=== PATIENT | male | born 1940 | race Caucasian/White ===

== ENCOUNTER 2016-09-11 18:21 | Inpatient (IN) | payer MEDICARE, BC ==
--- NOTE | ~2016-09-11 | PRECARD ---
H&P [place] [id number] [place]. [address] NAME: SHANDA LOONEY : 42 STATUS : ADM IN [facility]#: [id number] AGE: 76 ADM/REG DATE : 09/11/16 MR#: [id number] REPORT SERV DATE: 09/12/16 DICTATED BY: CATY CALERO DATE: 09/12/16 REPORT STATUS : Draft TRANSCRIBED BY: MARTY DATE: 09/12/16 DATE OF ADMISSION: 09/11/2016 HISTORY OF PRESENT ILLNESS: Mr. Shanda Looney is a 76-year-old gentleman, admitted for osteomyelitis, Cardiology is consulted for preop evaluation prior to removal of a portion of his second toe on his left foot. Mr. Looney has ischemic cardiomyopathy, coronary artery disease, multiple stents placed. He has not had bypass surgery. He has a biventricular AICD. He has a history of atrial flutter ablation, he is unable to take oral anticoagulation per Dr. Espinoza because of hemoptysis. He has severe COPD, hypertension, diabetes, and esophageal reflux. He has morbid obesity. He was admitted to [facility] on 08/31/2016 for heart failure exacerbation with 35-pound weight gain. He had aggressive diuresis and was discharged. He is now admitted with known, chronic infection of a second toe on the left foot. At this time, he denies any chest pain. He has had no presyncope or syncope. He stated his defibrillator has not discharged. He feels much better from a heart failure perspective. There is no recent orthopnea or PND. He does describe persistent dyspnea on exertion. PAST MEDICAL HISTORY: 1. Diabetes. 2. COPD. 3. Esophageal reflux. MEDICATIONS: 1. Albuterol. 2. Aspirin. 3. Symbicort. 4. Calmoseptine ointment. 5. Carvedilol. 6. Clopidogrel. 7. Lasix. 8. Insulin. 9. BiDil. 10.Lisinopril. 11.Metformin. 12.Omeprazole. 13.Potassium. 14.Pravachol. 15.Requip. 16.Spironolactone. 17.Spiriva. FAMILY HISTORY: Positive for coronary artery disease. REVIEW OF SYSTEMS: H&P [facility] [address] [place]. [address] NAME: SHANDA LOONEY : 44 STATUS : ADM IN PAT#: [id number] AGE: 76 ADM/REG DATE : 09/11/16 MR#: [id number] REPORT SERV DATE: 09/12/16 DICTATED BY: CATY CALERO DATE: 09/12/16 REPORT STATUS : Draft TRANSCRIBED BY: MARTY DATE: 09/12/16 A complete review of systems obtained, pertinent negative and remarkable, except as noted above and below. All systems addressed. PHYSICAL EXAMINATION: Bp: 100/60. Heart Rate: 70. GENERAL: The patient is morbidly obese, comfortable flat, in very good spirits, in no distress at all. HEENT: No xanthelasma; lips without cyanosis LUNGS: Clear to auscultation, no wheezes, rales or rhonchi; good breath sounds. COR: No JVD or hepatojugular reflux, no murmurs, rubs or gallops, impulse mid clavicular line without carotid or abdominal bruits; normal S1 and S2. ABDOMEN: Bowel sounds positive, normal activity, without tenderness, masses or hepatosplenomegaly. EXTREMITIES: Bilateral severe leg edema. SKIN: Normal turgor. Ms: Normal muscle strength, without kyphosis/scoliosis. NEURO/PSYCH: Alert and oriented times 4, no apparent anxiety or depression. LABORATORY DATA: BUN is 30, creatinine 1.2. Troponin 0.09. Hematocrit 35.9. BNP is 1003. EKG: Ventricular paced. ASSESSMENT: Mr. Looney is a very nice 76-year-old gentleman with ischemic cardiomyopathy, ejection fraction 35% by echocardiogram earlier this month, scheduled for being considered for removal of a portion of his left second toe. There is no absolute cardiac indication to that procedure. I presume the risk would be greater than benefit. I will advance his diuretics given his severe leg edema, recent admission with 35-pound weight gain, elevated BNP of 1000. KRISS/MARTY Caty Calero M.D. / [id number] CC: Oumou Humphries M.D.
--- NOTE | ~2016-09-11 | OP ---
Record Of Operation [facility] [address] [place]. [address] NAME: SHANDA LOONEY : 44 STATUS : ADM IN [facility]#: [id number] AGE: 76 ADM/REG DATE : 09/11/16 MR#: [id number] REPORT SERV DATE: 09/14/16 DICTATED BY: BETHANY KENNEDY DATE: 09/14/16 REPORT STATUS : Draft TRANSCRIBED BY: MODL DATE: 09/14/16 DATE OF PROCEDURE: 09/14/2016 SURGEON: Bethany Kennedy D.P.M. PREOPERATIVE DIAGNOSIS: Osteomyelitis, left second digit. POSTOPERATIVE DIAGNOSIS: Osteomyelitis, left second digit. PROCEDURE: Disarticulation of the digit at the proximal interphalangeal joint level with a portion of the phalangeal shaft to aid in closure. ANESTHESIA: Local MAC consisting with 10 mL of 0.5% Marcaine plain administered to the fifth metatarsal area in a Ko block fashion. HEMOSTASIS: No pneumatic ankle tourniquet was used. ESTIMATED BLOOD LOSS: 10 mL. MATERIALS: 4-0 nylon, 2-0 nylon. PATHOLOGICAL SPECIMENS: 1. Deep wound culture at the level of amputation. 2. Head of proximal phalanx and portions of bone for both pathologic evaluation as well as microbiology. Proximal portion of phalangeal shaft with an inked edge to rule out osteomyelitis at the most proximal margin. DESCRIPTION OF PROCEDURE: The patient was visually and verbally identified in the holding as 76-year-old white male, Shanda Looney. The patient was medically cleared for this procedure, had no questions. Left foot was identified for surgical intervention. The patient was then taken to the operating room, placed on the operating room table in the supine position. After adequate IV sedation was achieved a local block consisting of 10 mL of 0.5% Marcaine plain was administered to the left second metatarsophalangeal joint area in a Ko block fashion. He was then prepped and draped in the usual sterile fashion. Pneumatic ankle tourniquet was placed about the patient's left ankle, but was not utilized. Attention was then directed to the distal aspect of the digit whereby observation to the level of bone was noted. Abscessed dorsally under the skin was noted as well. Plantarly, the skin had significant damage. The digit was then disarticulated at the proximal interphalangeal joint level, significant plantar flap to allow for closure. Adequate bleeding at this level had not proceeded. Dissection proximally was then accomplished. The head of the proximal phalanx was then removed due to the previous skin avascularity. A portion of the proximal phalangeal shaft was then removed. The bone was found to be very hard at this level. There was then proximal extension of abscess throughout the tendon sheath. No abnormal findings at the most proximal portion. The wound was then flushed with saline. The wound was then closed utilizing 2-0 nylon and 4-0 nylon in simple interrupted fashion. Betadine solution, dry sterile compressive dressing was applied. The patient tolerated the procedure and Record Of Operation [address] [place]. [address] NAME: SHANDA LOONEY : 44 STATUS : ADM IN [facility]#: [id number] AGE: 76 ADM/REG DATE : 09/11/16 MR#: [id number] REPORT SERV DATE: 09/14/16 DICTATED BY: BETHANY KENNEDY DATE: 09/14/16 REPORT STATUS : Draft TRANSCRIBED BY: MARTY DATE: 09/14/16 anesthesia well, left the operating room with vital signs stable and vascular status at preoperative levels and was returned to the general medical floor for further care. TALISHA/MARTY Lisa RamosPDb / [id number] CC: MD John Deleon M.D.
--- NOTE | ~2016-09-11 | HP ---
History And Physical [place] [address] [facility] [place]. [address] NAME: SHANDA LOONEY : 42 STATUS : ADM IN [facility]#: [id number] AGE: 76 ADM/REG DATE : 09/11/16 MR#: [id number] REPORT SERV DATE: 09/11/16 DICTATED BY: CADE GUERRERO DATE: 09/11/16 REPORT STATUS : Draft TRANSCRIBED BY: MODL DATE: 09/11/16 DATE OF ADMISSION: 09/11/2016 HISTORY OF PRESENT ILLNESS: The patient is a 76-year-old male who was sent from Dr. Gagnon's office to [facility] Emergency Room because of right second toe infection and osteomyelitis, and Dr. Gagnon also sent with the patient orders for his foot x-rays, for his foot cultures and dressing, as well as instructions as several physicians needs to be consulted including Dr. Nielson for evaluation of the patient's vascular status in his lower extremity as well as Dr. Espinoza for cardiac clearance and Dr. William from Infectious Disease. The patient and his reported that the patient was recently hospitalized at [facility] where he was admitted on 08/31/2016 with symptoms of congestive heart failure and 35-pound weight gain, shortness of breath and swelling and we have history of present illness in the computer dictated by Dr. Espinoza, and the patient and reported that the patient was given diuretics, but because of the risk of worsening kidney function, he was not given enough diuresis and he is still swollen as well as the patient is complaining of cough with some sputum production, which is having color like klein, but no blood in the sputum. He denies any fever. No chest pain. He has shortness of breath on minimal physical exertion. No abdominal pain. PAST MEDICAL HISTORY: Very extensive. 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 According to the patient, he had a stent placement in the past, morbid obesity, history of airway telangiectasias diagnosed via bronchoscopy, history of recent hypoglycemia when the patient was at Dr. Nielson's office, history of recent surgery on the right big toe and history of vascular procedure done by Dr. Nielson on the right leg. According to the patient's , she said that he opened up two arteries in his legs, but he could not open up the third one, and reporting that Dr. Nielson needs to see the patient before any surgical intervention to be done as well as Dr. Espinoza needs to see the patient before any surgical intervention to be done. The patient also has COPD. He is a long-term smoker, history of defibrillator pacemaker. SURGICAL HISTORY: Includes stripped veins, cholecystectomy, surgery on the right big toe, shoulder repair, knee surgery, and some kind of revascularization procedure on the right lower extremity. History of hiatal hernia repair. SOCIAL HISTORY: He is a long-term smoker. He used to smoke 5 packs per day. He recently quit like 10 years ago. No alcohol. No recreational drug use. ALLERGIES: THERE IS AMLODIPINE LISTED ALLERGY, BUT THE PATIENT IS UNSURE IF HE REALLY HAS ALLERGY TO AMLODIPINE. FAMILY HISTORY: Positive for coronary artery disease, hypertension, and diabetes. History And Physical [address] [address] NAME: SHANDA LOONEY : 42 STATUS : ADM IN [facility]#: [id number] AGE: 76 ADM/REG DATE : 09/11/16 MR#: [id number] REPORT SERV DATE: 09/11/16 DICTATED BY: CADE GUERRERO DATE: 09/11/16 REPORT STATUS : Draft TRANSCRIBED BY: MARTY DATE: 09/11/16 HOME MEDICATIONS: Include NovoLog before meals, Lantus 50 units at bedtime, furosemide 40 daily, albuterol nebulized 4 times daily p.r.n., aspirin 81 mg daily, Symbicort two puffs inhaled twice a day, Calmoseptine ointment as needed, carvedilol 25 p.o. b.i.d., Plavix 75 mg a day, Lasix 40 mg a day, insulin Humalog 15 units before meals and 20 before lunch and supper, BiDil 20/37.5 three times daily, lisinopril 5 mg a day, metformin 500 p.o. b.i.d., nitroglycerin 0.4 mg p.r.n. for chest pain, Prilosec 20 mg a day, potassium chloride 20 mEq a day, pravastatin 20 mg a day, Requip 1 mg p.o. three times daily for restless legs syndrome, spironolactone 25 mg a day, Spiriva one capsule by inhalation q.24 hours. Cough drops as needed for cough. REVIEW OF SYSTEMS: 14-point review of system done and negative except what is stated in the history of present illness. PHYSICAL EXAMINATION: GENERAL: Obese male, not in acute distress. Resting quietly. VITAL SIGNS: Blood pressure 101/64, temperature 98.3, heart rate 71, respiratory rate 20, oxygen saturation 94 on room air. HEENT: Head atraumatic, normocephalic. Conjunctivae clear. Pupils are equal and reactive to light and accommodation. Extraocular muscles are intact. NECK: Supple. Trachea is midline. No supraclavicular or cervical lymphadenopathy. LUNGS: Diminished breath sounds bilaterally. Decreased respiratory effort. CARDIOVASCULAR SYSTEM: Regular rate and rhythm. Point of maximal impulse not displaced. ABDOMEN: Obese, soft, nontender, nondistended with positive normoactive bowel sounds. No organomegaly. EXTREMITIES: No clubbing, cyanosis. 1+ edema on the feet. There is a right second toe erythema as well as there is a pus on upper part of the right second toe and it is warm to touch. Diminished pedal pulse bilaterally. PSYCHIATRIC: Normal mood and affect. NEUROLOGICAL: Awake, alert, oriented to time, place, and person. Muscle strength is 5/5 bilaterally on upper and lower extremities. SKIN: Normal color and turgor. LABORATORY RESULTS: Sodium 135, potassium 5.1, chloride 103, carbon dioxide 26, BUN 29, creatinine 1.24, blood sugar is 95, troponin 0.08. White count 6.6, hemoglobin 11.7, hematocrit 36.5, platelet count 124. PT 18.1. INR 1.5. Chest x-ray currently ordered, but still pending. X-ray of the left foot, no fracture or dislocation. EKG needs to be ordered as well. ASSESSMENT AND PLAN: 1. This is a 76-year-old male with a past medical history of coronary artery disease, history of congestive heart failure, chronic systolic dysfunction, history of peripheral arterial disease, history of hemoptysis and COPD as well as diabetes type 2, presented with right second toe osteomyelitis from Dr. Gagnon's office with Dr. Gagnon's orders already written on the separate sheet regarding his osteomyelitis. 2. Cough. History And Physical [address] [address] NAME: SHANDA LOONEY : 42 STATUS : ADM IN [facility]#: [id number] AGE: 76 ADM/REG DATE : 09/11/16 MR#: [id number] REPORT SERV DATE: 09/11/16 DICTATED BY: CADE GUERRERO DATE: 09/11/16 REPORT STATUS : Draft TRANSCRIBED BY: MODSudha DATE: 09/11/16 3. Minimally elevated troponin. 4. History of coronary artery disease. 5. Congestive heart failure recent exacerbation, still having some residual edema. 6. Chronic kidney disease stage III. 7. Diabetes mellitus. We will admit the patient to cardiac telemetry bed. Regarding his osteomyelitis, we will obtain blood cultures and wound cultures. We will cover the patient with antibiotics; vancomycin and cefepime. We will do sedimentation rate and CRP. Regarding the patient's cough he still may have CHF exacerbation. We will order chest x-ray, as well as we will order echocardiogram and we will check serial troponins. We will order BNP and we will consult Dr. Espinoza for further evaluation of his cardiac status as well as for preoperative clearance as it was requested by his outbound sales executive, Dr. Gagnon. 8. Minimally elevated troponin. We will do serial troponins and EKG was also ordered. 9. Diabetes mellitus. We will put him on insulin sliding scale as well as continue Levemir instead of his home Lantus. 10.Regarding his chronic obstructive pulmonary disease, we will give him breathing treatments per protocol. We will order bilateral arterial duplex ultrasound. Once again, it is also very necessary to pay attention at separate orders written by Dr. Gagnon regarding wound care, and regarding further plan of treatment per request of Dr. Gagnon, I will consult Dr. Nielson for further evaluation of patient's vascular status as well as Dr. Espinoza for further evaluation of the patient's cardiac status if he can have any surgical interventions as well as we will consult Infectious Disease. Everything was discussed with the patient and his and my partner will see this patient starting tomorrow morning. MG/MODL Cade Guerrero M.D. / [id number] CC: Oumou Humphries M.D. Christopher Lesar, M.D. Dennis Bizzoco, D.P.M. Andrew H Fowler, M.D.
--- NOTE | ~2016-09-11 | CN ---
Consultation Report [facility] [address] [place]. [address] NAME: SHANDA LOONEY : 44 STATUS : ADM IN [facility]#: [id number] AGE: 76 ADM/REG DATE : 09/11/16 MR#: [id number] REPORT SERV DATE: 09/14/16 DICTATED BY: SUDHAKAR HENRIQUEZ DATE: 09/13/16 REPORT STATUS : Draft TRANSCRIBED BY: MODSudha DATE: 09/13/16 DATE OF CONSULTATION: 09/13/2016 REFERRING PHYSICIAN: Dr. Gagnon. REASON FOR CONSULTATION: Osteomyelitis and cellulitis. HISTORY OF PRESENT ILLNESS: This is a 76-year-old man with a past medical history notable for obesity, congestive heart failure, diabetes, cardiomyopathy with AICD, COPD. He was admitted to the hospital on 09/11/[address] Gagnon's office with infection of his left second toe. This had developed over the past week and a half or so with increasing pain, swelling, and some drainage, but no associated fevers, chills, or sweats. X-ray on admission was interpreted as not showing any bony abnormalities, but on my review, I think the very distal tip of the left second toe distal phalanx has some bony changes suggestive of osteomyelitis. The patient had a wound culture done along with blood cultures and was started on empiric antibiotics with vancomycin and cefepime. A bone scan has been done, but it is not yet complete. There are tentative plans for surgical therapy in the next day or two. The patient denies any significant pain at present. PAST MEDICAL HISTORY: In addition to the above is notable for atrial flutter with a history of ablation. He also had treatment in April apparently by Dr. Gagnon for some problems in the left big toe which included infection, but I do not have those details. He has had a cholecystectomy and hiatal hernia repair, and AICD as mentioned. He has also had some vascular procedure on his right lower extremity. ALLERGIES: NO KNOWN ANTIBIOTIC ALLERGIES. PRESENT MEDICATIONS: Include aspirin, Coreg, Plavix, insulin, BiDil, Protonix, Pravachol, Requip, Aldactone, Spiriva, Levemir, and the antibiotics. SOCIAL HISTORY: He was a heavy smoker in the past, but quit some years ago. Nondrinker, lives with his who is here in the room with him. FAMILY HISTORY: Noncontributory to the present acute problem. REVIEW OF SYSTEMS: No nausea, vomiting, diarrhea, chest pain, shortness of breath. PHYSICAL EXAMINATION: VITAL SIGNS: The patient weighs 139 kg. He is afebrile. Blood pressure 121/77, pulse 59, respiratory rate 14. GENERAL: He is alert, in no acute distress. HEAD AND NECK: Shows a clear oral cavity without thrush. LUNGS: Clear to auscultation anteriorly. CARDIAC: Regular rate and rhythm. Normal S1, S2 without murmur, gallop, or rub. Consultation Report [place] [address] [place]. [address] NAME: SHANDA LOONEY : 44 STATUS : ADM IN [facility]#: [id number] AGE: 76 ADM/REG DATE : 09/11/16 MR#: [id number] REPORT SERV DATE: 09/14/16 DICTATED BY: SUDHAKAR HENRIQUEZ DATE: 09/13/16 REPORT STATUS : Draft TRANSCRIBED BY: MARTY DATE: 09/13/16 ABDOMEN: Obese, soft, nontender. There is mild erythema of his abdominal pannus. EXTREMITIES: The left second toe has obvious gross infection with loss of some of the epidermis and some purulent drainage and wound which is not probed, but goes into at least the subcutaneous tissue on the tip of the toe. There is some swelling of the entire second toe and very minimal erythema of the toe and the dorsum of the foot, mild associated warmth. The patient has a peripheral IV without phlebitis. LABORATORY STUDIES: White blood cell count on admission was 6.6, hemoglobin is 11.5, platelets 123. Creatinine 1.24. Hemoglobin A1c 7.3. C-reactive protein 10.7, sedimentation rate 5. BNP on admission 1003. Liver function tests normal. Wound culture is growing abundant gram-negative bk. Gram stain showed gram-positive cocci. Blood cultures negative to date. Chest x-ray negative. Left foot x-ray as mentioned. Lower extremity arterial duplex studies show no evidence of major vascular obstruction. Bone scan is pending. IMPRESSION: Osteomyelitis of the left second toe distal phalanx with associated cellulitis. The wound culture is growing a gram-negative bk, but the Gram stain shows gram-positive cocci and I think with the associated cellulitis, we need to continue coverage for both. PLAN: Pending final culture results and surgical treatment. We will continue vancomycin and Zosyn. Anticipate changing to oral antibiotics though shortly after surgery. HH/MODL Sudhakar Henriquez M.D. / [id number] CC: MD John Mendenhall M.D. Dennis Bizzoco, D.PDb
--- NOTE | ~2016-09-11 | DS ---
Discharge Summary [place] [address] [place]. [address] NAME: SHANDA LOONEY : 44 STATUS : DIS IN PAT#: [id number] AGE: 76 ADM/REG DATE : 09/11/16 MR#: [id number] REPORT SERV DATE: 09/16/16 DICTATED BY: LC THAKKAR DATE: 09/16/16 REPORT STATUS : Draft TRANSCRIBED BY: MODL DATE: 09/16/16 ADMISSION DATE: 09/11/2016 DISCHARGE DATE: 09/16/2016 DISCHARGE DIAGNOSES: 1. Osteomyelitis of second toe, status post amputation. 2. Wound cultures growing Pseudomonas and Proteus, both of which are sensitive to fluoroquinolones. 3. Acute on chronic systolic congestive heart failure, baseline ischemic cardiomyopathy with ejection fraction of 35%. 4. Diabetes type 2. 5. Morbid obesity. 6. Hypertension. 7. Chronic obstructive pulmonary disease. 8. Gastroesophageal reflux disease. CONSULTS: 1. Cardiology. 2. Infectious Disease. 3. Podiatry. PROCEDURES AND IMAGING: Left second toe amputation on 09/14/2016. HOSPITAL COURSE: This is a 76-year-old gentleman who was admitted to the hospital with a left second toe infection with underlying osteomyelitis. For details, please refer to excellent H and P dictated by Dr. Barbara Ornelas. In summary, the patient was admitted and was started on broad-spectrum antibiotics. The patient was seen by Cardiology for the systolic congestive heart failure exacerbation as well as cardiac clearance for pending surgery. The patient was also seen by Infectious Disease and Podiatry. The patient was cleared for surgery from cardiac standpoint and the patient underwent amputation of left second toe on 09/14/2016. The surgery itself was uncomplicated. Throughout the hospital stay, the patient tolerated IV Bumex diuresis well, and the patient remained afebrile and hemodynamically stable with normal white blood cell count. A lot of the infected tissue was cleanly removed with the second toe amputation and thus the patient was cleared for discharge from Infectious Disease and Podiatry standpoint on the day after surgery. As the patient was diuresing really well, the patient was monitored another day for more IV Bumex diuresis prior to discharge. The patient is being discharged to home with one week course of p.o. Levaquin as well as increased dose of Lasix to a 40 mg p.o. b.i.d. regimen. DISCHARGE DESTINATION: Home with home health. DISCHARGE MEDICATIONS: 1. Levaquin 750 mg p.o. daily x6 additional days. 2. Lasix 40 mg p.o. b.i.d. which is increased from once daily. 3. Hydrocodone 5/325 one tab p.o. q.6 hours p.r.n., 15 tablets. Otherwise, no medication changes. Discharge Summary [address] [address] NAME: SHANDA LOONEY : 44 STATUS : DIS IN PAT#: [id number] AGE: 76 ADM/REG DATE : 09/11/16 MR#: [id number] REPORT SERV DATE: 09/16/16 DICTATED BY: LC THAKKAR DATE: 09/16/16 REPORT STATUS : Draft TRANSCRIBED BY: MARTY DATE: 09/16/16 FOLLOWUP: 1. Please follow up with PCP in the next one to two weeks. 2. Please follow up with Cardiology in the next two to four weeks. 3. Please follow up with Podiatry in the next two to four weeks. A total of 40 minutes spent in coordinating this patient's discharge today. DICTATED BY: MD PIERCE Deleon/MARTY Lc Thakkar MD / [id number] CC: MD John Deleon M.D.
[2016-09-11 15:27] LABS: BASOPHILS 0.2 %; BASOPHILS ABSOLUTE 0.01 10/3/uL (0.0-0.16); EOSINOPHILS 2.1 %; EOSINOPHILS ABSOLUTE 0.13 10/3/uL (0.0-0.53); ER CBC TAT 0 Hrs 07 Mins; HEMATOCRIT 39.2 % (40.0-51.0); HEMOGLOBIN 12.3 g/dL (13.6-17.8); IMMATURE GRANULOCYTES 0.3 %; IMMATURE GRANULOCYTES ABSOLUTE 0.02 10/3/uL (0.0-0.11); LYMPHOCYTES 12.2 %; LYMPHOCYTES ABSOLUTE 0.75 10/3/uL (0.67-4.30); MEAN CORPUS HGB CONC 31.4 g/dL (32.0-36.0); MEAN CORPUSCULAR HEMOGLOB 26.9 pg (26.0-34.0); MEAN CORPUSCULAR VOLUME 85.8 fL (80-100); MEAN PLATELET VOLUME 9.3 fL (9.2-13.0); MONOCYTES 17.6 %; MONOCYTES ABSOLUTE 1.08 10/3/uL (0.21-1.20); NEUTROPHILS 67.6 %; NEUTROPHILS ABSOLUTE 4.16 10/3/uL (2.02-8.40); PLATELET COUNT 127 10/3/uL (150-400); RBC DISTRIBUTION WIDTH 15.7 % (12.0-16.0); RED CELL COUNT 4.57 10/6/uL (4.7-6.1); WHITE BLOOD CELLS 6.2 10/3/uL (4.5-10.5)
[2016-09-11 15:28] LABS: MANUAL DIFF NO %
[2016-09-11 15:39] LABS: ALBUMIN 3.4 G/DL (3.5-5.0); CALCIUM, SERUM 8.4 MG/DL (8.5-10.4); CHLORIDE, SERUM 104 MMOL/L (96-112); CO2 (CARBON DIOXIDE) 29 MMOL/L (24-34); CREATININE 1.27 MG/DL (0.70-1.30); GFR AFRICAN AMERICAN 64 ML/MIN (>=60); GFR NON AFRICAN AMERICAN 55 ML/MIN (>=60); GLOBULIN 3.4 G/DL (2.5-4.1); SGOT(AST) 26 U/L (5-40); SGPT(ALT) 50 U/L (5-65); SODIUM, SERUM 136 MMOL/L (135-148); TOTAL BILIRUBIN 1.2 MG/DL (0-1.2); TOTAL PROTEIN 6.8 G/DL (6.0-8.5)
[2016-09-11 15:40] LABS: ALKALINE PHOSPHATASE 77 U/L (45-117); BUN (BLOOD UREA NITROGEN) 29 MG/DL (6-23); GLUCOSE, SERUM 78 MG/DL (60-99)
[2016-09-11 18:13] LABS: BASOPHILS 0.2 %; BASOPHILS ABSOLUTE 0.01 10/3/uL (0.0-0.16); EOSINOPHILS 2.3 %; EOSINOPHILS ABSOLUTE 0.15 10/3/uL (0.0-0.53); HEMATOCRIT 36.5 % (40.0-51.0); HEMOGLOBIN 11.7 g/dL (13.6-17.8); IMMATURE GRANULOCYTES 0.3 %; IMMATURE GRANULOCYTES ABSOLUTE 0.02 10/3/uL (0.0-0.11); LYMPHOCYTES 15.1 %; LYMPHOCYTES ABSOLUTE 0.99 10/3/uL (0.67-4.30); MEAN CORPUS HGB CONC 32.1 g/dL (32.0-36.0); MEAN CORPUSCULAR HEMOGLOB 27.4 pg (26.0-34.0); MEAN CORPUSCULAR VOLUME 85.5 fL (80-100); MEAN PLATELET VOLUME 9.4 fL (9.2-13.0); MONOCYTES 15.1 %; MONOCYTES ABSOLUTE 0.99 10/3/uL (0.21-1.20); NEUTROPHILS ABSOLUTE 4.39 10/3/uL (2.02-8.40); PLATELET COUNT 124 10/3/uL (150-400); RBC DISTRIBUTION WIDTH 15.9 % (12.0-16.0); RED CELL COUNT 4.27 10/6/uL (4.7-6.1); WHITE BLOOD CELLS 6.6 10/3/uL (4.5-10.5)
[2016-09-11 18:17] LABS: MANUAL DIFF NO %
[2016-09-11 18:20] LABS: INTERNATIONAL NORMAL RATI 1.5 UNITS (-); PARTIAL THROMBO TIME 30.7 SEC (22.5-37.2)
[2016-09-11 18:21] LABS: PROTIME (NOT ORD) 18.1 SEC (12.0-14.5)
[~2016-09-11 18:21] MED LIST: ASA5GR PO; ASAB PO; ATROVENTUD INH; BIDIL20/37 PO; C1 PO; C5 PO; CLARIT10 PO; CORDARONE PO; COREG12 PO; COREG25 PO; DIABETA5 PO; DIL2TAB PO; DUONEB INH; FLONASE NAS; GLUCOPHAGE1000 MG PO; GLUCPH PO; HALF81 PO; HUMALOGPEN; HUMALOGPEN SC; KDUR20 PO; KLOR-CON M2020 MEQ PO; L40 PO; LAN125 PO; LANTUS SC; LEVAQUIN750 MG PO; LOVENOX80 SC; MAGOX4 PO; MUCINEX1200 MG PO; NITROQUICK0.4 MG SL; NITROSTAT0.4 MG SL; NOVOLOG SC; OCEAN NAS; OXYGEN; P10; P10 PO; PEP20 PO; PLAVIX PO; PRAVAC PO; PRILO PO; PRILOSEC OTC20 MG PO; PRILOSEC40 MG PO; PRIN20 PO; PRIN5 PO; PROAIR HFA INH; REQUIP1 PO; SPIRIVA INH; SPIRO25 PO; SYMBICORT 160/41 INH INH; VICTOZA18 MG/3 ML SC; VIST25 PO; Z-PAK PO
[2016-09-11] MEDS ORDERED: L40 PO (18:22)
[2016-09-11] MEDS ORDERED: LANTUS SC (18:22)
[2016-09-11] MEDS ORDERED: PRAVAC PO (18:23)
[2016-09-11] MEDS ORDERED: PRIN5 PO (18:23)
[2016-09-11] MEDS ORDERED: PLAVIX PO (18:23)
[2016-09-11] MEDS ORDERED: SPIRIVA INH (18:24)
[2016-09-11] MEDS ORDERED: COREG25 PO (18:25)
[2016-09-11] MEDS ORDERED: PRILOSEC OTC20 MG PO (18:25)
[2016-09-11] MEDS ORDERED: GLUCPH PO (18:25)
[2016-09-11] MEDS ORDERED: KLOR-CON M2020 MEQ PO (18:25)
[2016-09-11] MEDS ORDERED: NITROSTAT0.4 MG SL (18:26)
[2016-09-11] MEDS ORDERED: ASAB PO (18:26)
[2016-09-11] MEDS ORDERED: SPIRO25 PO (18:27)
[2016-09-11 18:28] LABS: BUN (BLOOD UREA NITROGEN) 29 MG/DL (6-23); CALCIUM, SERUM 8.2 MG/DL (8.5-10.4); CHLORIDE, SERUM 103 MMOL/L (96-112); CO2 (CARBON DIOXIDE) 26 MMOL/L (24-34); CREATININE 1.24 MG/DL (0.70-1.30); GFR AFRICAN AMERICAN 66 ML/MIN (>=60); GFR NON AFRICAN AMERICAN 57 ML/MIN (>=60); POTASSIUM, SERUM 5.1 MMOL/L (3.5-5.3); SODIUM, SERUM 135 MMOL/L (135-148)
[2016-09-11] MEDS ORDERED: REQUIP1 PO (18:28)
[2016-09-11] MEDS ORDERED: ALBUTEROL0.63 MG/3 INH (18:28)
[2016-09-11 18:29] LABS: CHEST PAIN PROFILE TAT 0 Hrs 20 Mins; GLUCOSE, SERUM 95 MG/DL (60-99); TROPONIN I 0.08 NG/ML (<0.05)
[2016-09-11] MEDS ORDERED: BIDIL20/37 PO (18:29)
[2016-09-11] MEDS ORDERED: SYMBICORT 160/41 INH INH (18:31)
[2016-09-11] MEDS ORDERED: CALMOSEPTINE O2.5 OZ TOP (18:34)
[2016-09-11] MEDS ORDERED: [UNRECOGNIZED DRUG - OTHER] PO (18:35)
[2016-09-11 20:19] LABS: TROPONIN I 0.09 NG/ML (<0.05)
[2016-09-11 21:01] LABS: PROCALCITONIN <0.05 ng/mL (<0.5)
[2016-09-11 22:40] LABS: C-REACTIVE PROTEIN 10.7 MG/L (<8.0)
[2016-09-11 22:56] LABS: B NATRIURETIC PEPTIDE (BNP) 1002.9 PG/ML (< 100.0)
[2016-09-12 03:53] LABS: BASOPHILS 0.3 %; BASOPHILS ABSOLUTE 0.02 10/3/uL (0.0-0.16); EOSINOPHILS 2.2 %; EOSINOPHILS ABSOLUTE 0.13 10/3/uL (0.0-0.53); HEMATOCRIT 35.9 % (40.0-51.0); HEMOGLOBIN 11.5 g/dL (13.6-17.8); IMMATURE GRANULOCYTES 0.2 %; IMMATURE GRANULOCYTES ABSOLUTE 0.01 10/3/uL (0.0-0.11); LYMPHOCYTES 13.5 %; LYMPHOCYTES ABSOLUTE 0.81 10/3/uL (0.67-4.30); MEAN CORPUSCULAR HEMOGLOB 27.1 pg (26.0-34.0); MEAN CORPUSCULAR VOLUME 84.7 fL (80-100); MEAN PLATELET VOLUME 9.5 fL (9.2-13.0); MONOCYTES ABSOLUTE 0.72 10/3/uL (0.21-1.20); NEUTROPHILS 71.8 %; NEUTROPHILS ABSOLUTE 4.32 10/3/uL (2.02-8.40); PLATELET COUNT 123 10/3/uL (150-400); RED CELL COUNT 4.24 10/6/uL (4.7-6.1)
[2016-09-12 03:54] LABS: MANUAL DIFF NO %
[2016-09-12 04:14] LABS: BUN (BLOOD UREA NITROGEN) 30 MG/DL (6-23); CHLORIDE, SERUM 104 MMOL/L (96-112); CO2 (CARBON DIOXIDE) 27 MMOL/L (24-34); CREATININE 1.23 MG/DL (0.70-1.30); GFR AFRICAN AMERICAN 67 ML/MIN (>=60); GFR NON AFRICAN AMERICAN 57 ML/MIN (>=60); POTASSIUM, SERUM 4.9 MMOL/L (3.5-5.3); SODIUM, SERUM 136 MMOL/L (135-148)
[2016-09-12 04:17] LABS: GLUCOSE, SERUM 146 MG/DL (60-99); TROPONIN I 0.09 NG/ML (<0.05)
[2016-09-12 07:08] LABS: GLYCOHEMOGLOBIN (HbA1c) 7.3 % (4.7-6.1)
[2016-09-13 05:31] LABS: BUN (BLOOD UREA NITROGEN) 30 MG/DL (6-23); CALCIUM, SERUM 8.5 MG/DL (8.5-10.4); CHLORIDE, SERUM 102 MMOL/L (96-112); CO2 (CARBON DIOXIDE) 27 MMOL/L (24-34); CREATININE 1.24 MG/DL (0.70-1.30); GFR AFRICAN AMERICAN 66 ML/MIN (>=60); GFR NON AFRICAN AMERICAN 57 ML/MIN (>=60); GLUCOSE, SERUM 127 MG/DL (60-99); POTASSIUM, SERUM 4.4 MMOL/L (3.5-5.3); SODIUM, SERUM 137 MMOL/L (135-148)
[2016-09-14 03:36] LABS: CALCIUM, SERUM 8.5 MG/DL (8.5-10.4); CHLORIDE, SERUM 101 MMOL/L (96-112); CREATININE 1.38 MG/DL (0.70-1.30); GFR AFRICAN AMERICAN 58 ML/MIN (>=60); GFR NON AFRICAN AMERICAN 50 ML/MIN (>=60); POTASSIUM, SERUM 4.4 MMOL/L (3.5-5.3); SODIUM, SERUM 137 MMOL/L (135-148)
[2016-09-14 03:38] LABS: BUN (BLOOD UREA NITROGEN) 26 MG/DL (6-23); CO2 (CARBON DIOXIDE) 32 MMOL/L (24-34); GLUCOSE, SERUM 186 MG/DL (60-99)
[2016-09-15 04:29] LABS: BASOPHILS 0.4 %; BASOPHILS ABSOLUTE 0.02 10/3/uL (0.0-0.16); EOSINOPHILS 4.5 %; EOSINOPHILS ABSOLUTE 0.22 10/3/uL (0.0-0.53); HEMATOCRIT 38.1 % (40.0-51.0); HEMOGLOBIN 11.9 g/dL (13.6-17.8); IMMATURE GRANULOCYTES 0.2 %; IMMATURE GRANULOCYTES ABSOLUTE 0.01 10/3/uL (0.0-0.11); LYMPHOCYTES 20.2 %; LYMPHOCYTES ABSOLUTE 0.99 10/3/uL (0.67-4.30); MEAN CORPUS HGB CONC 31.2 g/dL (32.0-36.0); MEAN CORPUSCULAR HEMOGLOB 27.2 pg (26.0-34.0); MEAN PLATELET VOLUME 9.5 fL (9.2-13.0); MONOCYTES ABSOLUTE 0.59 10/3/uL (0.21-1.20); NEUTROPHILS 62.7 %; NEUTROPHILS ABSOLUTE 3.07 10/3/uL (2.02-8.40); PLATELET COUNT 134 10/3/uL (150-400); RED CELL COUNT 4.38 10/6/uL (4.7-6.1); WHITE BLOOD CELLS 4.9 10/3/uL (4.5-10.5)
[2016-09-15 04:32] LABS: MANUAL DIFF NO %
[2016-09-15 04:46] LABS: BUN (BLOOD UREA NITROGEN) 24 MG/DL (6-23); CALCIUM, SERUM 8.7 MG/DL (8.5-10.4); CHLORIDE, SERUM 102 MMOL/L (96-112); CO2 (CARBON DIOXIDE) 33 MMOL/L (24-34); CREATININE 1.13 MG/DL (0.70-1.30); GFR AFRICAN AMERICAN 74 ML/MIN (>=60); GFR NON AFRICAN AMERICAN 64 ML/MIN (>=60); POTASSIUM, SERUM 3.9 MMOL/L (3.5-5.3); SODIUM, SERUM 138 MMOL/L (135-148)
[2016-09-15 04:49] LABS: GLUCOSE, SERUM 107 MG/DL (60-99)
[2016-09-16 05:04] LABS: BASOPHILS 0.5 %; BASOPHILS ABSOLUTE 0.03 10/3/uL (0.0-0.16); EOSINOPHILS 2.6 %; EOSINOPHILS ABSOLUTE 0.17 10/3/uL (0.0-0.53); HEMATOCRIT 38.9 % (40.0-51.0); HEMOGLOBIN 12.2 g/dL (13.6-17.8); IMMATURE GRANULOCYTES 0.2 %; IMMATURE GRANULOCYTES ABSOLUTE 0.01 10/3/uL (0.0-0.11); LYMPHOCYTES 19.2 %; LYMPHOCYTES ABSOLUTE 1.24 10/3/uL (0.67-4.30); MEAN CORPUS HGB CONC 31.4 g/dL (32.0-36.0); MEAN CORPUSCULAR HEMOGLOB 27.4 pg (26.0-34.0); MEAN CORPUSCULAR VOLUME 87.2 fL (80-100); MEAN PLATELET VOLUME 9.7 fL (9.2-13.0); MONOCYTES 13.5 %; MONOCYTES ABSOLUTE 0.87 10/3/uL (0.21-1.20); NEUTROPHILS ABSOLUTE 4.13 10/3/uL (2.02-8.40); PLATELET COUNT 141 10/3/uL (150-400); RED CELL COUNT 4.46 10/6/uL (4.7-6.1); WHITE BLOOD CELLS 6.5 10/3/uL (4.5-10.5)
[2016-09-16 05:09] LABS: MANUAL DIFF NO %
[2016-09-16 05:17] LABS: CALCIUM, SERUM 8.9 MG/DL (8.5-10.4); CHLORIDE, SERUM 99 MMOL/L (96-112); CO2 (CARBON DIOXIDE) 32 MMOL/L (24-34); CREATININE 1.15 MG/DL (0.70-1.30); GFR AFRICAN AMERICAN 72 ML/MIN (>=60); GFR NON AFRICAN AMERICAN 62 ML/MIN (>=60); POTASSIUM, SERUM 4.2 MMOL/L (3.5-5.3); SODIUM, SERUM 135 MMOL/L (135-148)
[2016-09-16 05:18] LABS: BUN (BLOOD UREA NITROGEN) 19 MG/DL (6-23); GLUCOSE, SERUM 154 MG/DL (60-99)
[2016-09-16] MEDS ORDERED: LEVAQUIN750 MG PO (11:04)
[2016-09-16] MEDS ORDERED: NORCO1 TA1 PO (11:05)
== END 2016-09-16 13:02 | disposition home health service (06) | DRG 616 ==
LOC: ER 18:21 → 6NO 18:51
PROVIDERS: Emergency Medicine; Hospitalist; Internal Medicine; Internal Medicine Cardiovascular Disease; Podiatrist
PROC: 0QBR0ZX Excision of Left Toe Phalanx, Open Approach, Diagnostic (ICD-10-PCS; 2016-09-14)
PROC: 0Y6S0Z3 Detachment at Left 2nd Toe, Low, Open Approach (ICD-10-PCS; principal; 2016-09-14 16:45)
DX: E11.69 Type 2 diabetes mellitus with other specified complication (principal); I50.23 Acute on chronic systolic (congestive) heart failure; L03.116 Cellulitis of left lower limb; E11.22 Type 2 diabetes mellitus with diabetic chronic kidney disease; I13.0 Hypertensive heart and chronic kidney disease with heart failure and stage 1 through stage 4 chronic kidney disease, or unspecified chronic kidney disease; M86.9 Osteomyelitis, unspecified; I48.0 Paroxysmal atrial fibrillation; J44.9 Chronic obstructive pulmonary disease, unspecified; I25.10 Atherosclerotic heart disease of native coronary artery without angina pectoris; I73.9 Peripheral vascular disease, unspecified; I25.5 Ischemic cardiomyopathy; N18.3 Chronic kidney disease, stage 3 (moderate); K21.9 Gastro-esophageal reflux disease without esophagitis; Z68.38 Body mass index [BMI] 38.0-38.9, adult; Z95.810 Presence of automatic (implantable) cardiac defibrillator; Z95.5 Presence of coronary angioplasty implant and graft; Z79.02 Long term (current) use of antithrombotics/antiplatelets; Z79.82 Long term (current) use of aspirin; B96.5 Pseudomonas (aeruginosa) (mallei) (pseudomallei) as the cause of diseases classified elsewhere; B96.4 Proteus (mirabilis) (morganii) as the cause of diseases classified elsewhere
CPT/HCPCS: 71010; 73630-LT; 78315; 80048; 80053; 80202; 82962; 83036; 83735; 83880; 84145; 84443; 84484; 85025; 85610; 85652; 85730; 86140; 87040; 87070; 87075; 87077; 87186; 87205; 88304; 88305; 88307; 88311; 93005; 93925; 94640; 99284; A9270-GY; A9561; J0692; J2250; J3010; J3370

== ENCOUNTER 2016-09-22 16:44 | Inpatient (IN) | payer MEDICARE, BC ==
--- NOTE | ~2016-09-22 | OP ---
Record Of Operation [facility] [address] [place] [place]. [address] NAME: SHANDA LOONEY : 42 STATUS : DIS IN PAT#: [id number] AGE: 76 ADM/REG DATE : 09/22/16 MR#: [id number] REPORT SERV DATE: 10/27/16 DICTATED BY: RIVERA PARTIDA DATE: 10/27/16 REPORT STATUS : Draft TRANSCRIBED BY: MARTY DATE: 10/27/16 DATE OF PROCEDURE: 09/25/2016 PREOPERATIVE DIAGNOSES: 1. Osteomyelitis with gangrene left 2nd toe involving the entire distal, middle, and proximal phalanx. 2. Postoperative wound dehiscence from prior subtotal disarticulation to amputation of left 2nd toe at the level of the DIPJ. POSTOPERATIVE DIAGNOSES: 1. Osteomyelitis with gangrene left 2nd toe involving the entire distal, middle, and proximal phalanx. 2. Postoperative wound dehiscence from prior subtotal disarticulation to amputation of left 2nd toe at the level of the DIPJ. COMPLICATIONS: None. TOURNIQUET: No tourniquet was employed. ANESTHESIA: General with supplementation of 0.5% plain Marcaine, 2% plain Xylocaine, ankle bracelet fashion, 20 mL total volume. ESTIMATED BLOOD LOSS: Less than 15 mL. DESCRIPTION OF PROCEDURE: The patient was brought to the operating room on the afternoon of 09/25/2016 in the satisfactory condition and general anesthesia was initiated. The patient's left foot was prepped and draped in the usual sterile manner. The patient then had a racquet-stick incision linear over the left 2nd metatarsal phalangeal joint with a circumferential demarcation between the gangrenous and non-gangrenous tissue of the left 2nd toe. The patient then had the area flushed with copious amounts of normal saline. Identification of the long flexor and long extensor was made. These were tagged and clamped using 0 Vicryl suture. The patient's proximal stump bled more than it had prior to vascular surgeons revascularization done on 09/23/2016. This is a significant increased perfusion at this time. The patient then had an identifications of the fragments of the distal phalanx of the middle phalanx and then sharp dissection was carried out to remove the gangrenous and non-gangrenous tissue and sent out for pathology. The patient then had a sharp dissection, dissecting the entire proximal phalanx. The proximal phalanx was then sectioned once removed and a head, a shaft, and a base. There was flushed with copious amounts of normal saline. Intraoperative cultures were obtained. The head of the 2nd metatarsal was viable and white hyaline cartilage was completely intact. The patient then had identification of the long flexor and long extensor. End-to-end anastomosis was done over the distal-most aspect of the left 2nd metatarsal using the previously placed 0 Vicryl suture. Once this was achieved, the remaining capsule was identified and the capsule was sutured using 2-0 Vicryl continuous suture over the entire anastomosis of the flexor and extensor. The deep subcutaneous tissue was identified and was closed. Reapposed first using 4-0 Vicryl simple interrupted suture. Old periosteum that was still in the left 2nd toe stump. The patient Record Of [place] [address] [facility] [place]. [address] NAME: SHANDA LOONEY : 42 STATUS : DIS IN PAT#: [id number] AGE: 76 ADM/REG DATE : 09/22/16 MR#: [id number] REPORT SERV DATE: 10/27/16 DICTATED BY: RIVERA PARTIDA DATE: 10/27/16 REPORT STATUS : Draft TRANSCRIBED BY: MARTY DATE: 10/27/16 then had the superficial and subcutaneous tissue closed using 5-0 Vicryl simple interrupted suture and then skin was closed using a combination of 3-0 Prolene simple interrupted sutures with 2-0 Prolene modified horizontal mattress sutures. This was an end-to-end anastomosis without any signs of necrosis or blanching or venous congestion or arterial insufficiency. There was no blanching. The patient then had a Betadine dry sterile dressing applied. The patient tolerated the procedures well and went to recovery room in a satisfactory condition. KHARI/MARTY Rivera Partida D.P.M. / [id number] CC: Oumou Graham M.D.
--- NOTE | ~2016-09-22 | DS ---
Discharge Summary [place] [address] [place] [address] NAME: SHANDA LOONEY : 42 STATUS : DIS IN PAT#: [id number] AGE: 76 ADM/REG DATE : 09/22/16 MR#: [id number] REPORT SERV DATE: 09/29/16 DICTATED BY: BORA TERESA DATE: 09/28/16 REPORT STATUS : Draft TRANSCRIBED BY: MARTY DATE: 09/28/16 ADMISSION DATE: 09/22/2016 DISCHARGE DATE: 09/28/2016 DIAGNOSES: 1. Left toe infection with history of osteo. 2. Peripheral artery disease. 3. History of systolic congestive heart failure, ejection fraction of 35%. 4. Type 2 diabetes. 5. Chronic kidney disease. FOLLOWUP: The patient should follow up with Dr. Gagnon, orientation and mobility specialist, as instructed. Also, the patient should follow up with his primary care physician in two weeks and to follow up with vascular surgeon, Dr. Gaurav Meeks, in two weeks. The patient is being to discharged to home with home health, wound care, per Podiatry orders. CONSULTANTS: 1. Vascular surgeon, Dr. Gaurav Meeks. 2. Podiatry, Dr. Gagnon. 3. Infectious Disease, Dr. Antonio William and Dr. Elmer Henriquez. 4. Hospitalist, Dr. Barbara Ornelas and Dr. Teresa. DISCHARGE MEDICATIONS: Aspirin 81 mg p.o. daily, Coreg 25 mg p.o. b.i.d., Plavix 75 mg p.o. daily, furosemide 40 mg p.o. b.i.d. per home dose, Lantus 50 units subcutaneous q.h.s., BiDil 25 or 37.5 half tab three times a day, level 2 subcu sliding scale insulin with Humalog, Prilosec 20 mg p.o. daily, potassium chloride 20 mEq p.o. daily, Pravachol 20 mg p.o. q.h.s., Requip 1 mg p.o. t.i.d., Aldactone 25 mg p.o. daily, Spiriva one cap inhaled daily, Symbicort 160/4.5 two puffs inhaled b.i.d. p.r.n., lisinopril 5 mg p.o. q.a.m. to hold for systolic blood pressure less than 125, metformin 500 mg p.o. b.i.d., albuterol nebs four times a day p.r.n., Florastor one cap p.o. b.i.d., Septra DS one tab p.o. b.i.d. for five days, and Augmentin 875 mg one tab p.o. b.i.d. for five days per Infectious Disease. PROCEDURES: 1. Aortogram with catheterization of the left peroneal artery and angioplasty and stent of the left superficial femoral artery with a self-expanding stent placed on 09/23/[address] Gaurav Meeks. 2. Partial amputation of the left second toe/disarticulation on 09/14/[address] Gagnon. HOSPITAL COURSE: Please see H and P dictated by Dr. Barbara Ornelas. This is a 76-year-old male with a past medical history of type 2 diabetes, hypertension, systolic congestive heart failure, recently diagnosed with left second toe osteomyelitis with a partial amputation by Dr. Gagnon, orientation and mobility specialist, was discharged, however, was followed up in his orientation and mobility specialist's office, found to have some poor wound healing, and the patient was readmitted to the hospital as a direct admission and accepted by Dr. Ornelas. Vascular Surgery was consulted. The patient was seen by vascular surgeon, Dr. Meeks, with arteriogram and angioplasty as mentioned above and stent placement for better wound healing. The patient Discharge Summary [address] [address] NAME: SHANDA LOONEY : 42 STATUS : DIS IN PAT#: [id number] AGE: 76 ADM/REG DATE : 09/22/16 MR#: [id number] REPORT SERV DATE: 09/29/16 DICTATED BY: BORA TERESA DATE: 09/28/16 REPORT STATUS : Draft TRANSCRIBED BY: MODSudha DATE: 09/28/16 was taken back to the OR on 09/25/[address] Gagnon for distal left second toe disarticulation for which the patient tolerated well. Also, Infectious Disease specialist with Dr. Antonio William and Dr. Elmer Henriquez continued to follow and provided antibiotic management. He remained on IV antibiotics up until 09/27/2016, for which, at that time, the patient was on IV vancomycin and later transitioned to oral antibiotic per Infectious Disease recommendations. I attended care for this patient initiating on the 09/26/2016. At that time, the patient remained clinically stable. His wound care was managed by Podiatry, also orientation and mobility specialist, Dr. Gagnon, who gave specific orders and his instructions for home health wound care. Also, the patient was informed of nonweightbearing of the left foot. He was continued on IV vancomycin and Zosyn while in the hospital and transitioned to oral antibiotics by Infectious Disease specialist. Podiatry as well as Infectious Disease specialist approved for discharge to home. All questions were answered. I also discussed with the patient and concerning discharge instructions. The patient was discharged to home in stable condition to follow up as an outpatient. This discharge required greater than 35 minutes. DICTATED BY: Oumou GrahamH/MARTY Bora Teresa M.D. / [id number] CC: Oumou Graham M.D. William Burton Harris, DO Dennis Bizzoco, D.PDb
--- NOTE | ~2016-09-22 | HP ---
History And Physical [place] [address] [place]. [address] NAME: SHANDA LOONEY : 42 STATUS : ADM IN [facility]#: [id number] AGE: 76 ADM/REG DATE : 09/22/16 MR#: [id number] REPORT SERV DATE: 09/22/16 DICTATED BY: CADE GUERRERO DATE: 09/22/16 REPORT STATUS : Draft TRANSCRIBED BY: MODL DATE: 09/22/16 DATE OF ADMISSION: 09/22/2016 HISTORY OF PRESENT ILLNESS: The patient is a very pleasant 76-year-old male who was admitted by me on 09/11/2016 for left second toe osteomyelitis. After I admitted the patient at night, the patient was seen by my colleague, Dr. Mendoza, until 09/16/2016 when he was discharged after he had partial amputation of his left second toe for toe osteomyelitis. Surgery was done by his client development manager, Dr. Gagnon, and the patient basically after discharge went to see Dr. Gagnon today and Dr. Gagnon noticed that his left second toe is not healing properly. He directed the patient to Dr. Lan's office and he told Dr. Lan that the patient needs to be sent to the hospital for a complete amputation of the left second toe. The patient was accepted by me as a direct admission and on further questioning, the patient reported that he did not have any fever. No chest pain. No shortness of breath at rest. He says that he always has shortness of breath on ambulation. He is not coughing any more. He is not volume overloaded. He is complaining of some redness in his skin folds under his abdomen. He said that the left second toe was draining some yellowish liquid. He denies any constipation. No headache. No fever. No rash. No abdominal pain. REVIEW OF SYSTEMS: All 14-point review of systems done and negative except what is stated in the history of present illness. PAST MEDICAL HISTORY: Known for osteomyelitis of the second toe, status post partial amputation; history of acute on chronic systolic congestive heart failure with a baseline ischemic cardiomyopathy with ejection fraction of 35%; diabetes type 2; morbid obesity; hypertension; COPD; gastroesophageal reflux disease; history of atrial flutter, status post ablation, not on oral anticoagulation secondary to hemoptysis; history of hemoptysis secondary to AVMs; history of COPD; hypertension; diabetes; gastroesophageal reflux disease; obstructive sleep apnea; ischemic cardiomyopathy and coronary artery disease; history of stent placement in the past; history of airway telangiectasia, diagnosed via bronchoscopy; history of recent hypoglycemia when he was in Dr. Nielson's office. PAST SURGICAL HISTORY: Surgical history includes a history of recent surgery on the right big toe, vascular procedure done on the right leg by Dr. Nielson. He said he opened up to arteries on that leg, but he could not open up the third one. Surgical history also includes stripped veins, cholecystectomy, surgery on the right big toe, shoulder repair, knee surgery, revascularization procedure on the right lower extremity, and history of hiatal hernia repair. SOCIAL HISTORY: He is a long-term smoker. He used to smoke five packs per day. No alcohol. No recreational drug use. ALLERGIES: THERE IS A QUESTIONABLE ALLERGY TO AMLODIPINE, BUT THE PATIENT IS UNAWARE WHAT TYPE OF ALLERGY IT IS. History And Physical [address] [address] NAME: SHANDA LOONEY : 42 STATUS : ADM IN [facility]#: [id number] AGE: 76 ADM/REG DATE : 09/22/16 MR#: [id number] REPORT SERV DATE: 09/22/16 DICTATED BY: CADE GUERRERO DATE: 09/22/16 REPORT STATUS : Draft TRANSCRIBED BY: MARTY DATE: 09/22/16 FAMILY HISTORY: Positive for coronary artery disease, hypertension, and diabetes. HOME MEDICATIONS: Include albuterol inhaled four times daily as needed, aspirin 81 mg a day, Symbicort two puffs inhaled twice a day p.r.n., Bumex 2 mg a day, Calmoseptine one application daily as needed, carvedilol 25 p.o. b.i.d., Plavix 75 mg a day, and Lasix 40 mg twice a day. He was also before on Bumex 2 mg a day, hydrocodone with acetaminophen 5/325 one tablet q.4 hours p.r.n. for pain, Lantus 50 units at bedtime, insulin Humalog 15 units before meals and 20 units before lunch, BiDil 20/37.5 three times a day, Levaquin 750 daily, lisinopril 5 mg a day, metformin 500 mg a day, nitroglycerin 0.4 sublingually p.r.n., omeprazole 20 a day, potassium chloride 20 mEq after lunch, pravastatin 20 mg at bedtime, Requip 1 mg p.o. three times a day, spironolactone 25 mg a day, Spiriva one capsule by inhalation q.24 hours, and cough syrup as needed. PHYSICAL EXAMINATION: GENERAL: Obese male, not in acute distress, resting quietly. VITAL SIGNS: Blood pressure 122/73, heart rate 60, respiratory rate 16, oxygen saturation 96% on room air, and temperature 97.5. HEENT: Head atraumatic and normocephalic. Conjunctivae are clear. Pupils are equal and reactive to light and accommodation. Extraocular muscles are intact. NECK: Supple. Trachea is midline. No supraclavicular or cervical lymphadenopathy. LUNGS: Clear to auscultation bilaterally. Normal respiratory effort. CARDIOVASCULAR SYSTEM: Regular rate and rhythm. Point of maximal impulse not displaced. ABDOMEN: Very obese. Soft. There is no tenderness to palpation in all abdominal quadrants. There is an erythema on the fold under the abdomen. A completely benign abdominal examination. EXTREMITIES: No clubbing or cyanosis. 1+ edema on both lower extremities. On the left second toe, there is redness and black area on the top of amputated toe. PSYCHIATRIC: Normal mood and affect. NEUROLOGIC: He is awake, alert, and oriented to time, place, and person. Muscle strength is 5/5 bilaterally in upper and lower extremities. SKIN: Normal color and turgor. LABORATORY RESULTS: Currently ordered, but they are pending. ASSESSMENT AND PLAN: 1. This is a 76-year-old male with recent hospitalization for the left second toe osteomyelitis, status post partial amputation, presented back to the hospital with increased osteomyelitis of the left toe and needs left toe complete amputation according to Dr. Gagnon's recommendation. For the left toe, we are going to check wound cultures and blood cultures, and we will start the patient on intravenous Zosyn and vancomycin according to previous sensitivities on 09/14/2016, the wound culture grew methicillin-resistant Staphylococcus aureus and Proteus. We cover it according to the reported sensitivity with vancomycin and Zosyn. 2. Regarding the patient's congestive heart failure, he has chronic systolic dysfunction and ischemic cardiomyopathy with ejection fraction of 35%. He does not have any shortness of breath at rest, like he had it last time. He is on Lasix 40 twice a day History And Physical [address] [address] NAME: SHANDA LOONEY : 42 STATUS : ADM IN PAT#: [id number] AGE: 76 ADM/REG DATE : 09/22/16 MR#: [id number] REPORT SERV DATE: 09/22/16 DICTATED BY: CADE GUERRERO DATE: 09/22/16 REPORT STATUS : Draft TRANSCRIBED BY: MARTY DATE: 09/22/16 at home. We are going to check his basic metabolic panel, and since he has mild lower extremity edema, we may give him intravenous Bumex as needed depending on his creatinine and close followup of his creatinine. 3. Chronic kidney disease, stage III. Creatinine looks stable. 4. Diabetes mellitus. We will put him on NovoLog sliding scale and put him on a long- acting insulin as well. 5. History of chronically elevated troponin. Last time when the patient was discharged, his minimal troponin level was on the discharge day on 09/20/2016 was 0.09. On further review of this patient's troponins, they were always elevated. The minimal level of troponin on this patient was 0.09 and 0.08. 6. Last time when the patient was in the hospital one week ago and he underwent surgery, he was cleared by his lube man. In the same time, we will check his chest x-ray and EKG. We will check troponin. 7. We will consult Dr. Gagnon and Dr. Nielson. Everything was discussed with the patient and his . /MARTY Cade Guerrero M.D. / [id number] CC: Oumou Donis M.D. Christopher Lesar, M.D. Andrew H Fowler, M.D. Dennis Bizzoco, D.PDb
--- NOTE | ~2016-09-22 | OP ---
Record Of Operation [facility] [address] [place]. [address] NAME: SHANDA LOONEY : 42 STATUS : ADM IN PAT#: [id number] AGE: 76 ADM/REG DATE : 09/22/16 MR#: [id number] REPORT SERV DATE: 09/23/16 DICTATED BY: GAURAV MEEKS DATE: 09/23/16 REPORT STATUS : Draft TRANSCRIBED BY: MODL DATE: 09/23/16 DATE OF PROCEDURE: 09/23/2016 ATTENDING SURGEON: Gaurav Meeks DO. PROCEDURES: 1. Ultrasound-guided access of right common femoral artery. 2. Aortogram. 3. Selective catheterization of left peroneal artery. 4. Angioplasty and stent of left superficial femoral artery with 7 x 150 EV3 self- expanding stent. PREOPERATIVE DIAGNOSIS: Nonhealing left lower extremity wound. POSTOPERATIVE DIAGNOSIS: Nonhealing left lower extremity wound. INDICATIONS FOR PROCEDURE: This is a very pleasant 76-year-old gentleman with multiple medical problems, who has a nonhealing wound to the left foot, status post partial toe amputation of the second toe. The recommendations were made for arteriogram with possible intervention. The procedure risks, benefits, alternatives, and indications were discussed extensively with the patient. All questions were answered. Consent was signed and placed in the chart. DESCRIPTION OF PROCEDURE IN DETAIL: On 09/23/2016, the patient was taken to the interventional suite and placed in supine position on the operating table. After the uneventful induction of monitored conscious analgesia, bilateral groins were prepped and draped in the usual sterile fashion. A time out was performed to the identify the patient and proposed procedure to be performed. The entirety of the staff agreed and agreed to the proceed with the procedure. Ultrasound was used to interrogate the right common femoral artery. Under direct visualization with ultrasound guidance, it was accessed with a micropuncture needle. Micropuncture wire was advanced. A micropuncture sheath was advanced. Arteriogram was performed of the access site which found it to be within the common femoral artery. The patient was systemically heparinized and the micropuncture sheath was exchanged for a 5-Bahamian sheath. Wire was introduced into the abdominal aorta as well as catheter. Aortogram was performed, which demonstrated patent bilateral renal arteries, patent aorta, and patent bilateral common and external iliac arterial systems. Wire and catheter technique were used to select at the left common and external iliac arterial system. Runoff of the left lower extremity was performed, which demonstrated patent common femoral and patent superficial femoral artery, but with multiple areas in the mid to distal superficial femoral artery of somewhat high-grade stenosis, roughly 70% stenosis. These had significant calcium burden as well. Catheter was introduced and advanced down into distal popliteal. Arteriogram was performed which demonstrated a patent anterior tibial artery without any evidence of hemodynamically significant stenosis. The peroneal artery was occluded at its origin with reconstitution in the mid calf, and the posterior tibial artery was occluded also at its origin with reconstitution at the ankle. There was good flow into the foot from the anterior tibial artery. A 5-Bahamian sheath was Record Of [address] [address] NAME: SHANDA LOONEY : 42 STATUS : ADM IN [facility]#: [id number] AGE: 76 ADM/REG DATE : 09/22/16 MR#: [id number] REPORT SERV DATE: 09/23/16 DICTATED BY: GAURAV MEEKS DATE: 09/23/16 REPORT STATUS : Draft TRANSCRIBED BY: MARTY DATE: 09/23/16 exchanged for a 6-Bahamian 45 cm sheath. Wire and catheter technique were used to attempt to cross the peroneal artery. Catheter was introduced into the proximal peroneal artery; however, it was not possible to cross the chronic total occlusion from an antegrade fashion. Decision was made to abort this in hopes to improve the end flow to promote wound healing. A 7 mm x 150 mm EV3 self-expanding stent was delivered across into the mid to distal superficial femoral artery. This was angioplastied along its course with a 6 mm x 150 mm balloon. Completion arteriogram demonstrated excellent flow through the system with no evidence of hemodynamically significant stenosis. At this juncture, all wires, catheters, and sheaths were removed. Angio-Seal was used to close the access site. There were no apparent intraoperative complications. The patient tolerated the procedure well. All counts were correct at the conclusion of the operation. [facility]/MARTY Gaurav Meeks DO / [id number] CC: Oumou Donis M.D.
[~2016-09-22 16:44] MED LIST changes: +ALBUTEROL0.63 MG/3 INH; +CALMOSEPTINE O2.5 OZ TOP; +NORCO1 TA1 PO; +[UNRECOGNIZED DRUG - OTHER] PO
[2016-09-22] MEDS ORDERED: BUM2 PO (17:58)
[2016-09-22 19:21] LABS: BASOPHILS 0.5 %; BASOPHILS ABSOLUTE 0.03 10/3/uL (0.0-0.16); EOSINOPHILS 2.3 %; EOSINOPHILS ABSOLUTE 0.13 10/3/uL (0.0-0.53); HEMATOCRIT 40.1 % (40.0-51.0); HEMOGLOBIN 12.7 g/dL (13.6-17.8); IMMATURE GRANULOCYTES 0.2 %; IMMATURE GRANULOCYTES ABSOLUTE 0.01 10/3/uL (0.0-0.11); LYMPHOCYTES 22.7 %; LYMPHOCYTES ABSOLUTE 1.26 10/3/uL (0.67-4.30); MEAN CORPUS HGB CONC 31.7 g/dL (32.0-36.0); MEAN CORPUSCULAR VOLUME 85.1 fL (80-100); MEAN PLATELET VOLUME 9.5 fL (9.2-13.0); MONOCYTES 12.9 %; MONOCYTES ABSOLUTE 0.72 10/3/uL (0.21-1.20); NEUTROPHILS 61.4 %; NEUTROPHILS ABSOLUTE 3.41 10/3/uL (2.02-8.40); PLATELET COUNT 138 10/3/uL (150-400); RBC DISTRIBUTION WIDTH 15.7 % (12.0-16.0); RED CELL COUNT 4.71 10/6/uL (4.7-6.1); WHITE BLOOD CELLS 5.6 10/3/uL (4.5-10.5)
[2016-09-22 19:22] LABS: MANUAL DIFF NO %
[2016-09-22 19:37] LABS: BUN (BLOOD UREA NITROGEN) 24 MG/DL (6-23); CALCIUM, SERUM 9.2 MG/DL (8.5-10.4); CHLORIDE, SERUM 101 MMOL/L (96-112); CO2 (CARBON DIOXIDE) 30 MMOL/L (24-34); CREATININE 1.36 MG/DL (0.70-1.30); GFR AFRICAN AMERICAN 59 ML/MIN (>=60); GFR NON AFRICAN AMERICAN 51 ML/MIN (>=60); POTASSIUM, SERUM 4.8 MMOL/L (3.5-5.3); SODIUM, SERUM 137 MMOL/L (135-148)
[2016-09-22 19:40] LABS: GLUCOSE, SERUM 64 MG/DL (60-99); TROPONIN I 0.11 NG/ML (<0.05)
[2016-09-23 01:28] LABS: BASOPHILS 0.4 %; BASOPHILS ABSOLUTE 0.02 10/3/uL (0.0-0.16); EOSINOPHILS ABSOLUTE 0.09 10/3/uL (0.0-0.53); HEMOGLOBIN 10.8 g/dL (13.6-17.8); IMMATURE GRANULOCYTES 0.2 %; IMMATURE GRANULOCYTES ABSOLUTE 0.01 10/3/uL (0.0-0.11); LYMPHOCYTES 21.6 %; LYMPHOCYTES ABSOLUTE 0.97 10/3/uL (0.67-4.30); MEAN CORPUS HGB CONC 32.2 g/dL (32.0-36.0); MEAN CORPUSCULAR HEMOGLOB 27.3 pg (26.0-34.0); MEAN CORPUSCULAR VOLUME 84.6 fL (80-100); MEAN PLATELET VOLUME 9.5 fL (9.2-13.0); MONOCYTES 17.1 %; MONOCYTES ABSOLUTE 0.77 10/3/uL (0.21-1.20); NEUTROPHILS 58.7 %; NEUTROPHILS ABSOLUTE 2.63 10/3/uL (2.02-8.40); PLATELET COUNT 115 10/3/uL (150-400); RBC DISTRIBUTION WIDTH 15.6 % (12.0-16.0); RED CELL COUNT 3.96 10/6/uL (4.7-6.1); WHITE BLOOD CELLS 4.5 10/3/uL (4.5-10.5)
[2016-09-23 01:37] LABS: HEMATOCRIT 33.5 % (40.0-51.0); MANUAL DIFF NO %
[2016-09-23 01:44] LABS: CHLORIDE, SERUM 111 MMOL/L (96-112); CREATININE 1.04 MG/DL (0.70-1.30); GFR AFRICAN AMERICAN 82 ML/MIN (>=60); GFR NON AFRICAN AMERICAN 70 ML/MIN (>=60); SODIUM, SERUM 141 MMOL/L (135-148)
[2016-09-23 01:47] LABS: BUN (BLOOD UREA NITROGEN) 20 MG/DL (6-23); CALCIUM, SERUM 7.1 MG/DL (8.5-10.4); CO2 (CARBON DIOXIDE) 24 MMOL/L (24-34); GLUCOSE, SERUM 96 MG/DL (60-99); POTASSIUM, SERUM 3.7 MMOL/L (3.5-5.3)
[2016-09-24 04:52] LABS: BASOPHILS 0.6 %; BASOPHILS ABSOLUTE 0.03 10/3/uL (0.0-0.16); EOSINOPHILS 1.9 %; EOSINOPHILS ABSOLUTE 0.09 10/3/uL (0.0-0.53); HEMOGLOBIN 11.8 g/dL (13.6-17.8); IMMATURE GRANULOCYTES 0.2 %; IMMATURE GRANULOCYTES ABSOLUTE 0.01 10/3/uL (0.0-0.11); LYMPHOCYTES 26.8 %; LYMPHOCYTES ABSOLUTE 1.25 10/3/uL (0.67-4.30); MEAN CORPUS HGB CONC 31.2 g/dL (32.0-36.0); MEAN CORPUSCULAR HEMOGLOB 26.5 pg (26.0-34.0); MEAN CORPUSCULAR VOLUME 84.8 fL (80-100); MEAN PLATELET VOLUME 9.6 fL (9.2-13.0); MONOCYTES 11.6 %; MONOCYTES ABSOLUTE 0.54 10/3/uL (0.21-1.20); NEUTROPHILS 58.9 %; NEUTROPHILS ABSOLUTE 2.75 10/3/uL (2.02-8.40); PLATELET COUNT 111 10/3/uL (150-400); RBC DISTRIBUTION WIDTH 15.7 % (12.0-16.0); RED CELL COUNT 4.46 10/6/uL (4.7-6.1); WHITE BLOOD CELLS 4.7 10/3/uL (4.5-10.5)
[2016-09-24 04:54] LABS: HEMATOCRIT 37.8 % (40.0-51.0); MANUAL DIFF NO %
[2016-09-24 05:06] LABS: BUN (BLOOD UREA NITROGEN) 22 MG/DL (6-23); CALCIUM, SERUM 8.9 MG/DL (8.5-10.4); CHLORIDE, SERUM 104 MMOL/L (96-112); CO2 (CARBON DIOXIDE) 27 MMOL/L (24-34); CREATININE 1.43 MG/DL (0.70-1.30); GFR AFRICAN AMERICAN 56 ML/MIN (>=60); GFR NON AFRICAN AMERICAN 48 ML/MIN (>=60); GLUCOSE, SERUM 257 MG/DL (60-99); POTASSIUM, SERUM 4.8 MMOL/L (3.5-5.3); SODIUM, SERUM 132 MMOL/L (135-148)
[2016-09-25 06:04] LABS: BASOPHILS 0.2 %; BASOPHILS ABSOLUTE 0.01 10/3/uL (0.0-0.16); EOSINOPHILS 2.7 %; EOSINOPHILS ABSOLUTE 0.12 10/3/uL (0.0-0.53); HEMATOCRIT 37.6 % (40.0-51.0); HEMOGLOBIN 11.9 g/dL (13.6-17.8); LYMPHOCYTES 28.4 %; LYMPHOCYTES ABSOLUTE 1.28 10/3/uL (0.67-4.30); MEAN CORPUS HGB CONC 31.6 g/dL (32.0-36.0); MEAN CORPUSCULAR HEMOGLOB 26.4 pg (26.0-34.0); MEAN CORPUSCULAR VOLUME 83.6 fL (80-100); MEAN PLATELET VOLUME 9.4 fL (9.2-13.0); MONOCYTES 13.7 %; MONOCYTES ABSOLUTE 0.62 10/3/uL (0.21-1.20); NEUTROPHILS ABSOLUTE 2.48 10/3/uL (2.02-8.40); PLATELET COUNT 114 10/3/uL (150-400); RBC DISTRIBUTION WIDTH 15.7 % (12.0-16.0); WHITE BLOOD CELLS 4.5 10/3/uL (4.5-10.5)
[2016-09-25 06:09] LABS: MANUAL DIFF NO %
[2016-09-25 06:19] LABS: BUN (BLOOD UREA NITROGEN) 21 MG/DL (6-23); CALCIUM, SERUM 9.4 MG/DL (8.5-10.4); CHLORIDE, SERUM 105 MMOL/L (96-112); CO2 (CARBON DIOXIDE) 26 MMOL/L (24-34); CREATININE 1.24 MG/DL (0.70-1.30); GFR AFRICAN AMERICAN 66 ML/MIN (>=60); GFR NON AFRICAN AMERICAN 57 ML/MIN (>=60); GLUCOSE, SERUM 88 MG/DL (60-99); POTASSIUM, SERUM 4.1 MMOL/L (3.5-5.3); SODIUM, SERUM 138 MMOL/L (135-148)
[2016-09-26 04:39] LABS: BASOPHILS 0.5 %; BASOPHILS ABSOLUTE 0.02 10/3/uL (0.0-0.16); EOSINOPHILS 2.7 %; EOSINOPHILS ABSOLUTE 0.11 10/3/uL (0.0-0.53); HEMOGLOBIN 11.6 g/dL (13.6-17.8); IMMATURE GRANULOCYTES 0.2 %; IMMATURE GRANULOCYTES ABSOLUTE 0.01 10/3/uL (0.0-0.11); LYMPHOCYTES 27.2 %; LYMPHOCYTES ABSOLUTE 1.12 10/3/uL (0.67-4.30); MEAN CORPUS HGB CONC 32.2 g/dL (32.0-36.0); MEAN CORPUSCULAR VOLUME 83.9 fL (80-100); MEAN PLATELET VOLUME 9.8 fL (9.2-13.0); MONOCYTES 14.8 %; MONOCYTES ABSOLUTE 0.61 10/3/uL (0.21-1.20); NEUTROPHILS 54.6 %; NEUTROPHILS ABSOLUTE 2.25 10/3/uL (2.02-8.40); PLATELET COUNT 103 10/3/uL (150-400); RBC DISTRIBUTION WIDTH 15.7 % (12.0-16.0); RED CELL COUNT 4.29 10/6/uL (4.7-6.1); WHITE BLOOD CELLS 4.1 10/3/uL (4.5-10.5)
[2016-09-26 04:40] LABS: MANUAL DIFF NO %
[2016-09-26 04:52] LABS: BUN (BLOOD UREA NITROGEN) 20 MG/DL (6-23); CALCIUM, SERUM 8.5 MG/DL (8.5-10.4); CHLORIDE, SERUM 104 MMOL/L (96-112); CO2 (CARBON DIOXIDE) 26 MMOL/L (24-34); CREATININE 1.17 MG/DL (0.70-1.30); GFR AFRICAN AMERICAN 71 ML/MIN (>=60); GFR NON AFRICAN AMERICAN 61 ML/MIN (>=60); GLUCOSE, SERUM 231 MG/DL (60-99); POTASSIUM, SERUM 4.2 MMOL/L (3.5-5.3); SODIUM, SERUM 138 MMOL/L (135-148)
[2016-09-26 09:27] LABS: INTERNATIONAL NORMAL RATI 1.6 UNITS (-); PROTIME (NOT ORD) 18.5 SEC (12.0-14.5)
[2016-09-27 03:49] LABS: BASOPHILS 0.4 %; BASOPHILS ABSOLUTE 0.02 10/3/uL (0.0-0.16); EOSINOPHILS 1.6 %; EOSINOPHILS ABSOLUTE 0.08 10/3/uL (0.0-0.53); HEMATOCRIT 36.3 % (40.0-51.0); HEMOGLOBIN 11.6 g/dL (13.6-17.8); IMMATURE GRANULOCYTES 0.2 %; IMMATURE GRANULOCYTES ABSOLUTE 0.01 10/3/uL (0.0-0.11); LYMPHOCYTES 25.3 %; LYMPHOCYTES ABSOLUTE 1.27 10/3/uL (0.67-4.30); MANUAL DIFF NO %; MEAN CORPUSCULAR HEMOGLOB 26.9 pg (26.0-34.0); MEAN CORPUSCULAR VOLUME 84.2 fL (80-100); MEAN PLATELET VOLUME 9.7 fL (9.2-13.0); MONOCYTES 15.6 %; MONOCYTES ABSOLUTE 0.78 10/3/uL (0.21-1.20); NEUTROPHILS 56.9 %; NEUTROPHILS ABSOLUTE 2.85 10/3/uL (2.02-8.40); PLATELET COUNT 113 10/3/uL (150-400); RBC DISTRIBUTION WIDTH 15.7 % (12.0-16.0); RED CELL COUNT 4.31 10/6/uL (4.7-6.1)
[2016-09-27 04:01] LABS: CALCIUM, SERUM 8.7 MG/DL (8.5-10.4); CHLORIDE, SERUM 103 MMOL/L (96-112); CO2 (CARBON DIOXIDE) 29 MMOL/L (24-34); CREATININE 1.18 MG/DL (0.70-1.30); GFR AFRICAN AMERICAN 70 ML/MIN (>=60); GFR NON AFRICAN AMERICAN 60 ML/MIN (>=60); POTASSIUM, SERUM 3.7 MMOL/L (3.5-5.3); SODIUM, SERUM 134 MMOL/L (135-148)
[2016-09-27 04:04] LABS: BUN (BLOOD UREA NITROGEN) 16 MG/DL (6-23); GLUCOSE, SERUM 96 MG/DL (60-99)
[2016-09-28 06:14] LABS: BASOPHILS 0.4 %; BASOPHILS ABSOLUTE 0.02 10/3/uL (0.0-0.16); EOSINOPHILS 2.4 %; EOSINOPHILS ABSOLUTE 0.11 10/3/uL (0.0-0.53); HEMATOCRIT 38.7 % (40.0-51.0); IMMATURE GRANULOCYTES 0.2 %; IMMATURE GRANULOCYTES ABSOLUTE 0.01 10/3/uL (0.0-0.11); LYMPHOCYTES 23.7 %; LYMPHOCYTES ABSOLUTE 1.07 10/3/uL (0.67-4.30); MEAN CORPUSCULAR HEMOGLOB 26.3 pg (26.0-34.0); MEAN CORPUSCULAR VOLUME 84.9 fL (80-100); MEAN PLATELET VOLUME 9.7 fL (9.2-13.0); MONOCYTES 18.8 %; MONOCYTES ABSOLUTE 0.85 10/3/uL (0.21-1.20); NEUTROPHILS 54.5 %; NEUTROPHILS ABSOLUTE 2.45 10/3/uL (2.02-8.40); PLATELET COUNT 114 10/3/uL (150-400); RED CELL COUNT 4.56 10/6/uL (4.7-6.1); WHITE BLOOD CELLS 4.5 10/3/uL (4.5-10.5)
[2016-09-28 06:16] LABS: MANUAL DIFF NO %
[2016-09-28 06:24] LABS: BUN (BLOOD UREA NITROGEN) 16 MG/DL (6-23); CALCIUM, SERUM 8.8 MG/DL (8.5-10.4); CHLORIDE, SERUM 104 MMOL/L (96-112); CO2 (CARBON DIOXIDE) 30 MMOL/L (24-34); CREATININE 1.17 MG/DL (0.70-1.30); GFR AFRICAN AMERICAN 71 ML/MIN (>=60); GFR NON AFRICAN AMERICAN 61 ML/MIN (>=60); POTASSIUM, SERUM 3.6 MMOL/L (3.5-5.3); SODIUM, SERUM 131 MMOL/L (135-148)
[2016-09-28 06:26] LABS: GLUCOSE, SERUM 68 MG/DL (60-99)
[2016-09-28] MEDS ORDERED: FLORASTOR250 MG PO (11:09)
[2016-09-28] MEDS ORDERED: SEPTRA DS1 TAB PO (11:10)
[2016-09-28] MEDS ORDERED: AUG875 PO (11:10)
[2016-09-28] MEDS ORDERED: HUMALOG SC (11:16)
== END 2016-09-28 14:43 | disposition home health service (06) | DRG 253 ==
LOC: 6NO 16:44
PROVIDERS: Hospitalist; Internal Medicine; Surgery Vascular Surgery
PROC: B41D1ZZ Fluoroscopy of Aorta and Bilateral Lower Extremity Arteries using Low Osmolar Contrast (ICD-10-PCS; principal; 2016-09-23 10:00)
PROC: 047L3DZ Dilation of Left Femoral Artery with Intraluminal Device, Percutaneous Approach (ICD-10-PCS; 2016-09-23 10:00)
PROC: 0Y6S0Z1 Detachment at Left 2nd Toe, High, Open Approach (ICD-10-PCS; 2016-09-25)
DX: E11.52 Type 2 diabetes mellitus with diabetic peripheral angiopathy with gangrene (principal); M86.9 Osteomyelitis, unspecified; I42.9 Cardiomyopathy, unspecified; I50.22 Chronic systolic (congestive) heart failure; I13.0 Hypertensive heart and chronic kidney disease with heart failure and stage 1 through stage 4 chronic kidney disease, or unspecified chronic kidney disease; E11.22 Type 2 diabetes mellitus with diabetic chronic kidney disease; N18.2 Chronic kidney disease, stage 2 (mild); E11.69 Type 2 diabetes mellitus with other specified complication; E66.01 Morbid (severe) obesity due to excess calories; I25.5 Ischemic cardiomyopathy; K21.9 Gastro-esophageal reflux disease without esophagitis; I25.10 Atherosclerotic heart disease of native coronary artery without angina pectoris; J44.9 Chronic obstructive pulmonary disease, unspecified; I77.1 Stricture of artery; F17.210 Nicotine dependence, cigarettes, uncomplicated; Z95.810 Presence of automatic (implantable) cardiac defibrillator; Z90.49 Acquired absence of other specified parts of digestive tract; Z79.4 Long term (current) use of insulin; Z79.82 Long term (current) use of aspirin; Z68.34 Body mass index [BMI] 34.0-34.9, adult; Z88.8 Allergy status to other drugs, medicaments and biological substances; Z79.899 Other long term (current) drug therapy
CPT/HCPCS: 37226; 71010; 71020; 73630-LT; 73660-LT; 75625; 75710; 75774; 80048; 80202; 81001; 82962; 83735; 84484; 85025; 85610; 85730; 87040; 87070; 87075; 87077; 87186; 87205; 88304; 88311; 93005; 94640; A9270-GY; C1725; C1760; C1769; C1876; C1894; J2250; J2370; J2543; J3010; J3370; Q9967